=== PATIENT | female | born 1980 | race Caucasian/White ===

== ENCOUNTER 2024-05-18 09:43 | Outpatient (CLI) | payer BC, SELFPAY ==
--- NOTE | ~2024-05-18 | US_ITS ---
EXAMINATION: US thyroid DATE: 05/18/2024 10:05 INDICATION: Elevated thyroid hormone levels TECHNIQUE: Multiple ultrasound images of the thyroid were obtained. COMPARISON: None. FINDINGS: The right thyroid lobe measures 4.5 x 1.7 x 1.7 cm. The left thyroid lobe measures 3.2 x 1.2 x 1.0 c m. Wider than tall 2.0 cm solid isoechoic nodule with smooth margins and without peripheral echogeni c foci (TI-RADS 3, mildly suspicious , FNA if >=2.5 cm, annual followup is >=1.5 cm). There is normal echotexture, echogenicity and vascular flow throughout the remainder of the thyroid gland. IMPRESSION: 1. 2.0 cm TI-RADS 3 right thyroid nodule for which annual ultrasound follow-up would be recommended. Reviewed, dictated and finalized at location A.
== END 2024-05-18 09:44 | disposition home or self-care (01) ==
LOC: MICIMG 09:44
PROVIDERS: PCP Nurse Practitioner Adult Health; Visit Provider Nurse Practitioner Adult Health
DX: E04.1 Nontoxic single thyroid nodule (principal); R79.89 Other specified abnormal findings of blood chemistry
CPT/HCPCS: 76536

== ENCOUNTER 2025-05-12 07:59 | Outpatient (CLI) | payer BC, SELFPAY ==
--- NOTE | ~2025-05-12 | XR_ITS ---
XR abdomen/kub 1V 05/12/2025 08:12 INDICATION: Obstipation TECHNIQUE: KUB COMPARISON: None FINDINGS: Bowel gas pattern is normal. Moderate colonic fecal loading. There are tubal ligation devices in the pelvis. There is no evidence of free air, mass, organomegaly, ascites or obstruction. No abnormal calculi are seen. The bones appear intact. IMPRESSION: 1: No acute abdominal abnormality identified. Reviewed, dictated and finalized at location O.
--- OUTSIDE RECORDS SUMMARY | 2025-05-12 08:17 | XMS_ITS | Encounter Summary ---
Author Organization [facility] Address [address] [place] [address] Phone Care Team Providers Care Optician Manager Name Role Phone Acacia Mercado MD Unavailable Ziggy Christine OD Unavailable Minnie Siddiqui NP Primary Care Provider [phone] Encounter Details Date Type Department Care Team (Late st Contact Info) Description 06/08/2017 Orders Only [facility] [address] [place] [address] Genesis Marte NP [address] [place] [address] Social History Tobacco Use Types Packs/Day Years Used Date Smoking Tobacco: Never Smokeless Tobacco: Never Alcohol Use Standard Drinks/Week Comments No 0 (1 standard drink = 0.6 oz pur e alcohol) Comments Unknown Sex and Gender Information Value Date Recorded Sex Assigned at Not on file 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 Gender Identity Not on file Sexual Orientation Not on file documented as of this encounter Plan of Treatment Not on file documented as of this encounter Visit Diagnoses Not on filedocumented in this encounter Additional Health Concerns Infection Onset Date Last Indicated Resolved Time COVID: Suspected 04/13/2024 04/13/2024 04/13/2024 11:53 AM CDT documented as of this encounter Care Teams Optician Manager Relationship Specialty Start Date End Date Minnie Siddiqui NP [address] [place] [address] PCP - General Nurse Practitioner 10/21/24 Acacia Mercado MD Referring Physician Dermatology 12/29/17 Ziggy Christine OD [address] [place] [address] Optometry 12/29/17 documented as of this encounter
--- OUTSIDE RECORDS SUMMARY | 2025-05-12 08:17 | XMS_ITS | Clinical Summary ---
Author Organization [facility] Care Team Providers Care Double Ending Machine Operator Name Role Phone Unavailable Primary Care Provider Unavailabl e Social History Tobacco Use Types Packs/Day Years Used Date Smoking Tobacco: Never Assessed Comments Unknown Sex and Gender Information Value Date Recorded Sex Assigned at Not on file Legal Sex Female 12:13 AM CDT Gender Identity Not on file Sexual Orientation Not on file Plan of Treatment Health Maintenance Due Date Last Done Comments Hepatitis C Virus (HCV) Screening 1978 TdaP Immunization 1978 Hepatitis B Immunization (1 of 3 - 19+ 3-dose series) 1997 Pap Smear 1999 Cervical Cancer Screening (CCS) 2008 HPV/Cotest 2008 Cologuard 2023 Colonoscopy 2023 Colorectal Cancer Screening 2023 Immunochemical Fecal Occult Blood 2023 SARS-COV-2 Immunization ( season) 2024 08/25/2021, 07/26/2021, 12/12/2020, Additional history exists Influenza Immunization (#1) 2025 08/21/2020 Respiratory Syncytial Virus (RSV) Immunization (Adult) (1 - 1-dose 75+ series) 2053 Human Papillomavirus (HPV) Immunization Aged Out No longer eligible based on patient's age to complete this topic Meningococcal Immunization (ACWY) Aged Out No longer eligible based on patient's age to complete this topic Pneumococcal Immunization Combined Aged Out No longer eligible based on patient's age to complete this topic Rotavirus Immunization Aged Out No lo nger eligible based on patient's age to complete this topic
--- OUTSIDE RECORDS SUMMARY | 2025-05-12 08:17 | XMS_ITS | Clinical Summary ---
Author Organization [facility] [address] Address [address] [place] [address] Phone Care Team Providers Care Research Quality Assurance Specialist Name Role Phone Acacia Mercado MD Unavailable Ziggy Christine OD Unavailable Minnie Siddiqui NP Primary Care Provider [phone] Allergies Active Allergy Reactions Criticality Noted Date Comments Adhesive Tape-Silicones Hives Medium Albuterol Other (See comments) Low Reaction: hyperventilation, Allantoin Unknown Low Amoxicillin Unknown Low Bacitracin-Polymyxin B Unknown Low Dextrose 5 % In Water (D5w) Unknown Low Gramicidin D Unknown Low Levofloxacin Unknown Low Mold Unknown Low Lyvwupfm-Rxxrsansan-Ayu ymyxin Unknown Low Potassium Unknown Low Pramoxine Unknown Low Silicones Urticaria Medium Sulfa (Sulfonamide Antibiotics) Unknown Low Tetanus And Diphther. Tox (Pf) Hives Medium 09/23/2022 Medications triamcinolone (KENALOG) 0.1 % ointment APPLY THREE TIMES DAILY UNTIL DIRECTED TO STOP 2 Active sertraline (ZOLOFT) 50 mg tabletIndicatio ns:Urticaria,Me nopause syndrome Take 0.5-2 tablets (25-100 mg total) by mouth daily Start with 25 mg, increase by 25 mg in the morning every 2 weeks until you are on 100 mg and then stay on that dose 60 tablet 2 3 Active Additional Information Patient not taking.Reported on 10/20/2023 montelukast (Singulair) 10 mg tabletIndicatio ns:Urticaria Take 1 tablet (10 mg total) by mouth nightly Plan to stop If this causes a headache 90 tablet 3 Active Additional Information Patient not taking.Reported on 10/20/2023 hydrOXYzine (ATARAX) 10 mg tabletIndicatio ns:Panic anxiety syndrome Take 1 tablet (10 mg total) by mouth every 8 (eight) hours as needed for anxiety 30 tablet 1 3 Active Additional Information Patient not taking.Reported on 10/21/2024 SUMAtriptan (IMITREX) 50 mg tabletIndicatio ns:Migraine Take 1 tablet (50 mg total) by mouth once as needed for migraine May repeat after 2 hours. 9 tablet 11 3 Active cetirizine (ZyrTEC) 10 mg tabletIndicatio ns:Allergic Rhinitis Take 1 tablet (10 mg total) by mouth 2 (two) times a day 60 tablet 1 3 Active clobetasoL (TEMOVATE) 0.05 % cream Apply a thin layer to the scars BID 30 g 1 5 Active omeprazole (PriLOSEC) 20 mg capsule Take 1 capsule (20 mg total) by mouth daily 5 Active methylPREDNISol one (MEDROL DOSEPACK) 4 mg DosepackIndicat ions:Bee sting, accidental or unintentional, initial encounter Take as directed on package. 21 tablet 5 04/17/20 25 Active Problems Problem Noted Date Diagnosed Date Family history of colon cancer 09/23/2022 Overview (09/23/2022): Grandfather had colon cancer and in his early 60s Urticaria 09/09/2022 Assessment & Plan (09/09/2022 9:40 AM RELIGION PROFESSOR): Acute problem, lesions have been sporadically erupting times a couple weeks Physical examination as documented - no signs/symptoms of serious illness noted Etiology difficult to determine based on history and PE - possibly inflammatory vs allergic Recommended trial of oral steroids, continued high dose antihistamines, and adding topical steroid cream that insurance physician had prescribed, as well as follow up with forest ecologist - patient agreeable to plan Orders for [facility] STAFF to arrange None at this time Orders for Ora Zamudio to arrange Start prednisone taper as ordered - complete course, take with food in the morning to prevent stomach upset and insomnia Continue daily cetirizine Continue Benadryl in the evening while still having rash Can continue topical steroid Continue monitoring symptoms - report persistent or worsening symptoms to the office or go to ER Follow up with forest ecologist as scheduled Follow up with Dr. Spann as scheduled or sooner if necessary Migraine without aura and wi thout status migrainosus, not intractable 08/21/2020 Chronic rhinitis 11/08/2018 Multiple benign melanocytic nevi 10/13/2015 Resolved Problems Problem Noted Date Diagnosed Date Resolved Date Glaucoma suspect of both eyes 02/06/2019 09/23/2022 Incontinence of urine in female 02/06/2019 08/21/2020 Chronic pharyngitis 10/10/2018 08/21/20 Assessment & Plan (10/10/2018 11:13 AM RELIGION PROFESSOR): Take Zpak with a meal 64 ounces of caffeine free and soda free fluid daily Laryngopharyngeal reflux (LPR) 10/10/2018 08/21/2020 Assessment & Plan (10/10/2018 11:13 AM RELIGION PROFESSOR): Zantac 300 mg at bedtime LPR discussed and Handout provided Chronic migraine 11/24/2017 02/06/2019 Overview (02/06/2019): Resolved after discontinuation of estrogen replacement Sore throat 11/21/2017 11/24/2017 Assessment & Plan (11/21/2017 12:58 PM CDT): Sore throat right ear pain present x1 day patient feels to tired run down. Throat is red pus pockets present strep test is positive patient has multiple drug allergies. She was given Z-Mike, given her history of drug allergies advised to take Benadryl 0.5 hr before taking the Z-Mike next 3 days. Supportive care for his sore throat throat lozenges. Anticipate ear pain will go away with the antibiotic treatment as well. 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 12/24/2017 Neoplasm of uncertain behavior of skin 10/17/2013 12/24/2017 Encounters Date Type Department Care Team Description 04/11/2025 6:45 PM CDT Office Visit [facility] [address] [place] [address] Alisson Esqueda NP Bee sting, accidental or unintentional, initial encounter (Primary Dx) from Last 3 Months Immunizations Immunization Administration Dates Next Due Influenza, Quadrivalent, Trupti l Culture-based MDCK, Preservative Free, Antibiotic Free, Intramuscular 07/30/2021 Influenza, Quadrivalent, Spl it, Preservative Free, Intramuscular 08/21/2020 Influenza, Trivalent, IM (MDV) 07/29/2014 Influenza, Unspecified 07/30/2021,08/21/2020 MMR 02/06/2019 Pfizer SARS-CoV-2 Monovalent Vaccination (12+ Yrs) PURPLE 07/26/2021,12/12/2020,11/17/2020 Tdap 08/28/2022,07/29/2014 Surgical History Surgery Date Site/Laterality Comments ESSURE TUBAL LIGATION Medical History Medical History Date Comments Migraine Allergic rhinitis 2 para 2 Glaucoma suspect of both eyes 02/06/2019 GERD (gastroesophageal reflux disease) 09/2021 Cancer (HCC) 2018 Family History Medical History Relation Name Comments Alcohol abuse Father Dad Cancer Maternal Grandfather Grandpa Throat cancer Maternal Grandfather Grandpa Cancer Maternal Grandmother Grandma Lung cancer Maternal Grandmother Grandma smoker Cancer Paternal Grandfather Grandpa Pancreatic cancer Paternal Grandfather Grandpa Cancer Paternal Grandmother Grandpa Other Paternal Grandmother Grandpa bladder issues Asthma Sister 1 #3 Diabetes Sister 2 #4 Relation Name Status Comments Father Dad Alive Maternal Grandfather Grandpa Maternal Grandmother Grandma Paternal Grandfather Grandpa Paternal Grandmother Grandpa Sister 1 #3 Alive Sister 2 #4 Alive Social History Tobacco Use Types Packs/Day Years Used Date Smoking Tobacco: Never Smokeless Tobacco: Never Tobacco Cessation:Counseling Given: Not Answered Alcohol Use Standard Drinks/Week Comments No 0 (1 standard drink = 0.6 oz pur e alcohol) PHQ-2 Answer Date Recorded PHQ-2 Total Score (If total score is 3 or more points, staff should administer the PHQ-9) 0 09/23/2022 Personal Safety Answer Date Recorded Getting School Help Needed Denies 08/26 Comments No Sex and Gender Information Value Date Recorded Sex Assigned at Not on file 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 Gender Identity Not on file Sexual Orientation Not on file Occupation Industry Job Start Date Job End Date Not on file Not on file Not on file Not on file Obstetrics History Para Term AB IAB SAB Ectopic Multiple Livin g Live Births 3 2 2 1 1 2 2 Date Outcome GA Total Labor Labor/2nd/3rd Weight Sex Type Anes PTL Amaris A1 A5 Name Clin SAB 2005 Term 3.204 kg (7 lb 1 oz) M Vag-S pont Living 2010 Term 3.459 kg (7 lb 10 oz) M Vag-S pont Living Last Filed Vital Signs Vital Sign Reading Time Taken Comments Blood Pressure 144/94 04/11/2025 6:46 PM CDT Pulse 91 04/11/2025 7:29 PM CDT Temperature 36.4 C (97.6 F) 04/11/2025 6:46 PM CDT Respiratory Rate 20 04/11/2025 6:46 PM CDT Oxygen Saturation 98% 04/11/2025 7:29 PM CDT Inhaled Oxygen Concentration - - Weight 86.2 kg (190 lb) 04/11/2025 6:46 PM CDT Height 177.8 cm (5' 10) 04/11/2025 6:46 PM CDT Body Mass Index 27.26 04/11/2025 6:46 PM CDT Plan of Treatment Health Maintenance Due Date Last Done Comments Colon Cancer Screening-Colonoscopy 1978 Hepatitis C Screening 1978 Hepatitis B Screening 1996 Depression Screening 09/23/2023 09/23/2022, 08/25/2021, 08/21/2020 Covid-19 Vaccine ( season) 2024 08/25/2021, 07/26/2021, 12/12/2020, Additional history exists Cervical Cancer Screening 10/20/2024 10/20/2023, Influenza Vaccine (#1) 2025 , 07/30/2021, 08/21/2020, Additional history exists Breast Cancer Screening-Mammogram 10/21/2025 10/21/2024, 10/20/2023, 09/23/2022, Additional history exists Regular Well Visit/Exam 18-64 10/21/2025 10/21/2024, 10/20/2023, 09/23/2022, Additional history exists DTaP/Tdap/Td Vaccine (3 - Td or Tdap) 08/28/2032 08/28/2022, 07/29/2014 Pneumococcal vaccine <65 Aged Out No longer eligible based on patient's age to complete this topic Procedures Procedure Name Priority Date/Time Associated Diagnosis Comments SCREENING MAMMOGRAM BILATERAL W SUHAS Schedule Routine, Read Routine (OP Routine) 10/21/2024 11:41 AM RELIGION PROFESSOR Screening mammogram, encounter for HIGH RISK HPV DNA DETECTION WITH GENOTYPING Routine 10/20/2023 1:53 PM RELIGION PROFESSOR Encounter for Papanicolaou smear for cervical cancer screening from Last 3 Months or Most Recently Relevant to Health Maintenance Results * Screening Mammogram Bilateral W Suhas (10/21/2024 11:41 AM RELIGION PROFESSOR) Anatomical Region Laterality Modality Breast Bilateral Mammography 10/21/2024 11:4 6 AM RELIGION PROFESSOR Impressions 10/21/2024 11:46 AM RELIGION PROFESSOR There is no mammographic evidence of malignancy. A 1 year screening mammogram is recommended. BI-RADS: 1 - Negative. The patient has been or will be contacted. The patient will be entered into a reminder system with a target due date of 1 year for her next mammogram. Electronically signed by: Emperatriz Perez M.D. Narrative 10/21/2024 11:46 AM RELIGION PROFESSOR EXAMINATION: SCREENING MAMMOGRAM BILATERAL W SUHAS ORDERING HEALTHCARE PROVIDER: JAI URBINA HISTORY: Routine screening mammography. COMPARISON: 10/20/2023, 09/23/2022, 08/18/2021, 07/14/2020 TECHNIQUE: CC and MLO views of the bilateral breasts were obtained with digital technique using breast tomosynthesis with C view. Computer aided detection was utilized. FINDINGS: DENSITY: The breasts are heterogeneously dense, which may obscure small masses. BREASTS: There are no suspicious masses, suspicious calcifications, or other suspicious findings in either breast. There has been no suspicious interval change. Jai Amry Jose C DO IMG MAMMO PROCEDURES Fi nal Result * High Risk HPV DNA Detection with Genotyping (Molecular component) (10/20/2023 1:53 PM RELIGION PROFESSOR) HPV HR 16 Not Detected Not Detected [facility] Comment:Testing performed by : [facility], [address] [place]., [address] HPV HR 18 Not Detected Not Detected [facility] Comment:Testing performed by : [facility], [address] [place]., [address] HPV HR Non 16/18 Not Detected Not Detected [facility] Comment: Interpretive Data Nucleic acid amplification for detection of high-risk Human Papilloma virus (HPV) is performed by the Jenny Berlin 6800 HPV test. This assay specifically detects HPV-16 and HPV-18 genotypes. The following HPV genotypes are detected as high-risk HPV: HPV-31, 33, 35, ,39, 45, 51, 52, 56, 58, 59, 66, and 68. This assay has been approved by the [place] Food and Drug Administration for detection of HPV in cervical specimens collected by a physician using an endocervical brush/spatula or cervical broom and placed in the ThinPrep Pap Test PreservCyt collection containers. The performance characteristics of this test have been verified by the [facility] Molecular Infectious Disease laboratory. Correlate with separately reported cytology results, as applicable. Interpretive data last revised 23 Testing performed by: [facility], [address] [place]., [address] Endocervical 10/20/2023 1:53 PM RELIGION PROFESSOR 10/23/2023 12:55 PM RELIGION PROFESSOR Narrative [facility] - 10/24/2023 3:08 AM RELIGION PROFESSOR Clinical history and diagnosis->Liquid-based PAP test with high risk HPV test- Z12.4 Number of vials->1 Testing type->Screening Last menstrual period (date if known)->10/13/23 Jai Urbina DO LAB BODY FLUIDS AND STO [place] [id number] [address] Department [place] [address] from Last 3 Months or Most Recently Relevant to Health Maintenance Insurance [facility] [place] ANTH ACCESS [employer] OOS ANTHEM ACCESS Advance Directives For more information, please contact: [phone] Documents on File Type Date Recorded Patient [address] Justice Expl anation ADVANCE DIRECTIVE 02/06/2019 DNR ADVANCE DIRECTIVE 07/29/2014 POWER OF A [employer] Care Teams Research Quality Assurance Specialist Relationship Specialty Start Date End Date Minnie Siddiqui NP [address] [place] [id number] PCP - General Nurse Practitioner 10/21/24 Acacia Mercado MD Referring Physician Dermatology 12/29/17 Ziggy Christine OD [address] [place] [address] Optometry 12/29/17
== END 2025-05-12 08:00 | disposition home or self-care (01) ==
PROVIDERS: PCP Nurse Practitioner Adult Health; Visit Provider Nurse Practitioner Adult Health
DX: R19.5 Other fecal abnormalities (principal)
CPT/HCPCS: 74018